=== PATIENT | female | born 1990 | race Caucasian/White ===

== ENCOUNTER 2019-08-15 11:26 | Inpatient (IN) | payer OTHER ==
[2019-08-15 12:13] VITALS: BMI 27.8
[2019-08-15] MEDS ORDERED: Carboprost 250 MCG/ML AMP IM PRN (12:21)
[2019-08-15] MEDS ORDERED: HYDROcodone/Acetaminophen 5/325 mg Tablet PO PRN ×2 (12:21)
[2019-08-15] MEDS ORDERED: Diphenoxylate HCl/Atropine Tablet PO PRN ×2 (12:21)
[2019-08-15] MEDS ORDERED: Misoprostol 200 MCG TAB PR PRN (12:21)
[2019-08-15] MEDS ORDERED: Butorphanol Tartrate 1 MG/ML VIAL SLOW IVP PRN (12:21)
[2019-08-15] MEDS ORDERED: Ondansetron PF 4 MG/2 ML Vial IVP PRN (12:21)
[2019-08-15] MEDS ORDERED: Promethazine HCl 25 MG/ML VIAL IM PRN (12:21)
[2019-08-15] MEDS ORDERED: Methylergonovine 0.2 MG/ML VIAL IM PRN (12:21)
[2019-08-15] MEDS ORDERED: hydrALAZINE 20 MG/ML VIAL SLOW IVP PRN (12:21)
[2019-08-15] MEDS ORDERED: Ibuprofen 800 MG TAB PO PRN (12:21)
[2019-08-15] MEDS ORDERED: Lidocaine 1% (PF) 30 ML VIAL SC PRN (12:21)
[2019-08-15] MEDS ORDERED: Acetaminophen 500 MG TAB PO PRN (12:21)
[2019-08-15] MEDS ORDERED: NS w/ Oxytocin 10 units 500 ML IV SCH ×2 (12:30)
--- NOTE | 2019-08-15 19:56 | PDOC.LDHP ---
Labor and Delivery H&P Chief complaint: contractions HPI: 29 y/o at 37 and 0/7 weeks with EDC of 09/05/19. Patient seen in clinc 3 times since 08/06/19, and is now in early labor. On 08/06/19 cervix was 1/60/-3. On 08/13/19 cervix was 4cm/80-2. 48 hours later , the patient called the office this morning complaining of new abdominal pressure and uterine discomfort. This morning in clinic the cervix was now 5/80/ -2 on my exam with well engaged head. I called L&D and gave report to the charge nurse, and advised the patient to head to labor and delivery for admission (for early labor at 37 weeks). The patient walked and made only minimal change initially, with the cervix rotating forward from posterior to mid position. By this evening, however, I rechecked the cervix and found it to be 6/80/-2/ and Anterior. Nurse Kacy Luque RN checked behind me minutes later at my request and called her 7cm dilated. Given the rapid progress the patient seemed to be making, 30 minutes later I rechecked her again and the patient was now 7-8cm dilated, and hoping for an epidural which was ordered. AROM was performed. GBS neg. No pitocin was used at this time. Ironically, minimal contraction activity registered so far on Tocometry. Due date: 09/05/19 Grav: 2 Para: 1 Current complications: none Abnormal US findings: No Current medications: pre- vitamins Previous surgical history: none Allergies/Adverse Reactions: Allergies Allergy/AdvReac Type Severity Reaction Status Date / Time No Known Allergies Allergy Verified 08/15/19 11:59 Social history: none - Physical Exam Vital signs reviewed and normal: yes General: NAD Heart: RRR Lungs: CTAB Abdomen: gravid Extremeties: no edema FHT: category 1 - Assessment L&D Assessment: term patient in labor - Plan Plan: admit to L&D, labor augmentation if indicated
[2019-08-15 20:08] LABS: Hemoglobin 11.2 g/dL (12.0-16.0); Mean Corpuscular HGB CONC 34.6 g/dL (32.0-36.0); Mean Corpuscular Hemoglobin 33.3 pg (27.0-31.0); Mean Corpuscular Volume 96.2 fL (78.0-98.0); Mean Platelet Volume 9.6 fL (7.4-10.4); Platelet Count 209 thou/uL (130-400); Red Blood Cell (RBC) Count 3.36 mill/uL (4.20-5.40); White Blood Cell (WBC) Count 6.3 thou/uL (4.8-10.8)
[2019-08-15] MEDS: Lactated Ringer's 1,000 ML IV SCH (20:20)
[2019-08-15] MEDS ORDERED: Fentanyl 4 mcg/Bup 0.1% Cadd 100 ML ONE (20:22)
[2019-08-15] MEDS ORDERED: Lidocaine 1.5%/Epinephrine 1:200,000 5 ML AMPUL IJ ONE (20:27)
[2019-08-15 20:43] LABS: Syphilis Antibody Nonreactive (Nonreactive); Syphilis Antibody Index 0.07 S/CO (<1.00 Non-Reactive)
[2019-08-15] MEDS ORDERED: Fentanyl 4 mcg/Bup 0.1% Cadd 100 ML in Premix Bag 1 BAG EPIDURAL SCH (21:00)
[2019-08-15 23:09] LABS: HBSAg Index 0.27 S/CO (0-0.99); Hep B Surf Ag Non-Reactive S/CO (NonReactive)
[2019-08-16] MEDS: NS / Oxytocin 40 units/1000ml 1,000 ML IV PRN ×2 (00:30→02:32)
[2019-08-16] MEDS ORDERED: hydrALAZINE 20 MG/ML VIAL SLOW IVP PRN (03:42)
[2019-08-16] MEDS ORDERED: Promethazine HCl 25 MG/ML VIAL IM PRN (03:42)
[2019-08-16] MEDS ORDERED: NS / Oxytocin 40 units/1000ml 1,000 ML IV SCH (03:42)
[2019-08-16] MEDS ORDERED: Milk Of Magnesia 30 ML UDCUP PO PRN (03:42)
[2019-08-16] MEDS ORDERED: Benzocaine-Menthol 82.5 ML CAN TOP PRN (03:42)
[2019-08-16] MEDS ORDERED: HYDROcodone/Acetaminophen 5/325 mg Tablet PO PRN ×2 (03:42)
[2019-08-16] MEDS ORDERED: Lanolin Ointment 7 GM TUBE TOP PRN (03:42)
[2019-08-16] MEDS ORDERED: Misoprostol 200 MCG TAB VAG PRN (03:42)
[2019-08-16] MEDS ORDERED: Bisacodyl 10 MG SUPP PR PRN (03:42)
[2019-08-16] MEDS ORDERED: Zolpidem Tartrate 5 MG TAB PO PRN (03:42)
[2019-08-16] MEDS ORDERED: diphenhydrAMINE 25 MG CAP PO PRN (03:42)
[2019-08-16] MEDS ORDERED: Ondansetron PF 4 MG/2 ML Vial IVP PRN (03:42)
[2019-08-16] MEDS ORDERED: Methylergonovine 0.2 MG/ML VIAL IM PRN (03:42)
[2019-08-16] MEDS ORDERED: Preparation H Ointment 57 gram tube RC PRN (03:42)
[2019-08-16] MEDS ORDERED: Ibuprofen 800 MG TAB PO SCH (04:00)
[2019-08-16] MEDS ORDERED: Docusate Calcium (SURFAK) 240 MG CAP PO SCH (04:00)
[2019-08-16] MEDS: Ferrous Sulfate 325 MG TAB PO SCH ×2 (08:12→18:13)
[2019-08-16] MEDS ORDERED: Adacel (T-DAP) 0.5 ML SYRINGE IM ONE (09:00)
[2019-08-16] MEDS ORDERED: Measles/Mumps/Rubella 10 MCG/0.5 ML VIAL SC ONE (09:00)
[2019-08-16] MEDS ORDERED: Varicella virus, LIVE 0.5 ML VIAL SC ONE (09:00)
[2019-08-16] MEDS ORDERED: Sodium Chloride 0.9% 10 ML ONE (10:06)
[2019-08-16] MEDS: Ibuprofen 800 MG TAB PO SCH ×2 (13:56→21:37)
--- NOTE | 2019-08-16 21:29 | PDOC.PP ---
Post Progress Note Post Day #: 0 PO intake tolerated: yes Flatus: yes Ambulation: yes Vital Signs (12 hours) Temp Pulse Resp BP Pulse Ox 08/16/19 19:40 98.3 F 66 20 143/68 H 99 08/16/19 17:22 98.2 F 69 20 143/92 H 100 08/16/19 12:05 97.6 F 88 20 147/93 H Weight Weight 162 lb - Physical Examination General: NAD Cardiovascular: no m/r/g, RRR Respiratory: clear to auscultation bilaterally, non-labored breathing Abdominal: + bowel sounds, lochia, no distention, appropriately TTP Extremities: negative homans (B) Neurological: no gross focal deficits Psychiatric: A&Ox3, normal affect (DC tomorrow planned) Result Diagrams: 08/15/19 19:51 Additional Labs: Post Labs Blood Type O POSITIVE 08/15/19 21:39 Hep Bs Antigen Non-Reactive S/CO (NonReactive) 08/15/19 19:51
[2019-08-16] MEDS: Docusate Calcium (SURFAK) 240 MG CAP PO SCH (21:37)
--- NOTE | 2019-08-17 02:26 | DN ---
DATE OF PROCEDURE: 08/16/2019 TIME OF SERVICE: At 0016 hours, Central Standard Time. PREOPERATIVE DIAGNOSIS: Intrauterine , should read 37 and 2 weeks with spontaneous onset of labor. POSTOPERATIVE DIAGNOSIS: Intrauterine , should read 37 and 2 weeks with spontaneous onset of labor. PROCEDURE PERFORMED: Spontaneous vaginal delivery over first-degree laceration of the perineum. FINDINGS: Viable male infant weighing 3136 g or 6 pounds 15 ounces. Apgars 9 and 9. QUANTITATIVE BLOOD LOSS: 155 mL. COMPLICATIONS: None. PROCEDURE IN DETAIL: The patient presented to [facility] where she was admitted to the labor and delivery service. The patient underwent a normal and uneventful labor with normal cervical dilatation until she was found to be completely dilated. She was then allowed to push and was able to bring the baby down and delivered the baby in a vertex presentation without difficulties. Once the head delivered in occiput anterior position, the shoulders followed spontaneously along with the rest of the baby's body. Once out the baby's mouth and nose were bulb suctioned. The cord was clamped and cut and baby was handed to waiting attendants. Cord blood was collected. Gentle fundal massage was performed and the placenta delivered intact without problems. Hemostasis was assured. Quantitative blood loss was calculated. Inspection of the cervix, vaginal vault, and perineum did not reveal any lacerations needing suturing. Once again, hemostasis was within normal limits and the patient was allowed to recover in the labor and delivery room. Baby went to nursery. Job ID: [id number]
[2019-08-17] MEDS: Ibuprofen 800 MG TAB PO SCH ×2 (05:47→17:32)
[2019-08-17 06:30] LABS: Mean Corpuscular HGB CONC 34.6 g/dL (32.0-36.0); Mean Corpuscular Hemoglobin 33.1 pg (27.0-31.0); Mean Corpuscular Volume 95.8 fL (78.0-98.0); Mean Platelet Volume 8.4 fL (7.4-10.4); Platelet Count 168 thou/uL (130-400); RBC Distribution Width 11.9 % (11.5-14.5); White Blood Cell (WBC) Count 8.1 thou/uL (4.8-10.8)
[2019-08-17] MEDS: Lactated Ringer's 1,000 ML IV SCH (08:11)
[2019-08-17] MEDS: Ferrous Sulfate 325 MG TAB PO SCH ×2 (09:30→17:32)
[2019-08-17] MEDS: Docusate Calcium (SURFAK) 240 MG CAP PO SCH (09:31)
[2019-08-17 10:58] VITALS: BP 134/73; TEMP 97.7
[2019-08-17] MEDS ORDERED: FLU VACC QS2019-20(6MOS UP)/PF 60 MCG/0.5 ML SYRINGE IM ONE (11:57)
[2019-08-18] MEDS ORDERED: FLU VACC QS2019-20(6MOS UP)/PF 60 MCG/0.5 ML SYRINGE IM ONE (10:30)
== END 2019-08-17 17:40 | disposition home or self-care (01) | DRG 807 ==
LOC: L&D 11:26 → 3SE 08-16 03:37
PROVIDERS: ADMIT Obstetrics & Gynecology; ATTEND Obstetrics & Gynecology
PROC: 10E0XZZ Delivery of Products of Conception, External Approach (ICD-10-PCS; principal; 2019-08-16)
PROC: 0HQ9XZZ Repair Perineum Skin, External Approach (ICD-10-PCS; 2019-08-16)
DX: O70.0 First degree perineal laceration during delivery (principal); Z37.0 Single live birth; Z3A.37 37 weeks gestation of pregnancy
CPT/HCPCS: 36415; 85027; 86780; 86850; 86900; 86901; 87340; 90471; 90685; 90686; 90715; 99285; G0008; J2590; J3490